=== PATIENT | female | born 1980 | race Caucasian/White ===

== ENCOUNTER 2017-04-16 11:40 | Emergency (ER) | payer SELFPAY ==
[~2017-04-16 11:40] MED LIST: ALBUTEROL17 GM INH; AMOXICILLIN PO; NO MEDICATIONS; PHENERGAN W/CO120 ML PO; PREDNISONE; PREDNISONE PO; VOLTAREN75 MG PO; ZITHROMAX PO
[2017-04-16 11:58] LABS: URINE SOURCE CLEAN CATCH
[2017-04-16 12:02] LABS: URINE APPEARANCE CLEAR; URINE BILIRUBIN NEG (NEG); URINE COLOR YELLOW; URINE GLUCOSE NEG (NORM); URINE KETONE NEG (NEG); URINE LEUKOCYTE ESTERASE NEG (NEG); URINE NITRATE NEG (NEG); URINE PROTEIN NEG (NEG); URINE SPECIFIC GRAVITY <=1.005 (1.003-1.035); URINE UROBILINOGEN 0.2 MG/DL (NORM)
[2017-04-16 12:04] LABS: MICRO INDICATED? NO; URINE BLOOD NEG (NEG)
== END 2017-04-16 12:49 | disposition home or self-care (01) ==
LOC: SED 11:40
PROVIDERS: Physician Assistant
DX: M54.5 Low back pain (principal); Z90.49 Acquired absence of other specified parts of digestive tract; F17.210 Nicotine dependence, cigarettes, uncomplicated; Z88.1 Allergy status to other antibiotic agents; Z88.8 Allergy status to other drugs, medicaments and biological substances; Z88.5 Allergy status to narcotic agent
CPT/HCPCS: 81003; 84703; 96372; 99283; J1885

== ENCOUNTER → 2017-06-20 | Outpatient (CLI) | payer OTHER ==
--- NOTE | ~2017-06-20 | CR151 ---
[facility]. [facility] A Service of [facility] [place] & [facility] RADIOLOGY TEXT RESULTS PATIENT: AILIN HEREDIA LOCATION: [facility] : 76 UNIT #: [id number] AGE: [address]: SAMMIE CESAR SEX: F ORDER DR: [id number] [address] [address] [id number] O MR#: [id number] Acc #: [id number] NAME: AILIN HEREDIA : 1980 SEX: F STUDY DATE/TIME: 06/20/2017 14:41 UNIT: [facility] ROOM: STUDY DESCRIPTION: CR Hip Min 2 Views Rt Attending Physician: Sammie Cesar Aprn Ordering Physician: Sammie Cesar Aprn Primary Care Physician: No Primary Care Physician MEDICAL IMAGING REPORT This report is preliminary unless electronic signature is present. EXAM Right hip 06/20/2017 HISTORY A 36-year-old female with chronic bilateral hip pain for several years. No specific injury. COMPARISON None. FINDINGS Two views of the right hip demonstrate no acute fracture or dislocation. Joint spaces are normally maintained. Bony pelvis, sacrum, SI joints intact. IMPRESSION Unremarkable right hip Dictated by... Dario Easton M.D. THIS IS AN ELECTRONICALLY VERIFIED REPORT Dario Easton M.D. at 06/21/2017 1:21 PM Yanna TD: 06/20/2017 21:07 JOB #: [id number] MEDICAL IMAGING REPORT Page 1 of 1
--- NOTE | ~2017-06-20 | CR150 ---
[facility]. [facility] A Service of [facility] & [facility] RADIOLOGY TEXT RESULTS PATIENT: AILIN HEREDIA LOCATION: [facility] : 76 UNIT #: [id number] AGE: [address]: SAMMIE CESAR SEX: F ORDER DR: [id number] [address] [address] [id number] O MR#: [id number] Acc #: [id number] NAME: AILIN HEREDIA : 1980 SEX: F STUDY DATE/TIME: 06/20/2017 14:41 UNIT: [facility] ROOM: STUDY DESCRIPTION: CR Hip Min 2 Views Lt Attending Physician: Sammie Cesar Aprn Ordering Physician: Sammie Cesar Aprn Primary Care Physician: Sherin Primary Care Physician MEDICAL IMAGING REPORT This report is preliminary unless electronic signature is present. EXAM Left hip, 06/20/2017. HISTORY 36-year-old female with chronic bilateral hip pain for several years. No specific injury. COMPARISON None. FINDINGS Two views of the left hip demonstrate no acute fracture or dislocation. Joint spaces are normally maintained. Bony pelvis, sacrum, and SI joints intact. IMPRESSION Unremarkable left hip. Dictated by... Dario Easton M.D. THIS IS AN ELECTRONICALLY VERIFIED REPORT Dario Easton M.D. at 06/21/2017 1:21 PM MATT/stoney TD: 06/20/2017 21:15 JOB #: [id number] MEDICAL IMAGING REPORT Page 1 of 1
== END | disposition home or self-care (01) ==
LOC: SRAD 14:35
DX: M25.551 Pain in right hip (principal); M25.552 Pain in left hip
CPT/HCPCS: 73502